=== PATIENT | female | born 1975 | race Caucasian/White ===

== ENCOUNTER 2017-03-14 18:11 | Inpatient (IN) | payer BC, OTHER ==
[~2017-03-14] VITALS: Ht 165.1 cm; Wt 61.0 kg
[~2017-03-14 18:11] MED LIST: ACET325T PO; BACTOIN EACH NARE; BROM2.5 PO; CALC600T25; CURIMIS; ESCI20TA PO; IBUP-232 PO; LAMO150 PO; LINE1TAB PO
[2017-03-14 18:13] VITALS: BP 101/51; PULSE 77; RESP 20; TEMP 97.8; O2SAT 99
--- NOTE | 2017-03-14 18:26 | PD ---
Physical Exam Time Seen by Provider: 18:25 Narrative 41 y/o female with R foot pain which started spontaneously yesterday. Vital signs reviewed. Seen at triage desk. Awaiting bed placement. Data Data Last Documented VS Vital Signs Date Time Temp Pulse Resp B/P Pulse Ox O2 Delivery O2 Flow Rate FiO2 03/14/17 18:13 97.8 77 20 101/51 99 Room Air MDM Medical Record Reviewed: Yes Supervised Visit with KALANI: Thai Sharpe Mar 14, 2017 18:26
[2017-03-14] MEDS ORDERED: diphenhydrAMINE HCL 50 MG/ML VIAL IV PUSH ONE (18:45)
[2017-03-14] MEDS ORDERED: VANCOMYCIN INJ 1,000 MG in SODIUM CHLOR 0.9% 250 ML INJ 250 ML IV ONE (18:45)
[2017-03-14] MEDS ORDERED: SODIUM CHLOR 0.9% 1000 ML INJ 1,000 ML IV ONE (18:45)
[2017-03-14] MEDS ORDERED: XANA1TAB2 PO (18:46)
--- NOTE | 2017-03-14 18:47 | PD ---
HPI Chief Complaint: Edema Time Seen by Provider: 18:44 Travel History International Travel<30 days: No Contact w/Intl Traveler<30days: No Traveled to known affect area: No History of Present Illness HPI 41 year old female presents to the emergency department for evaluation of right foot swelling, erythema that started yesterday. Patient reports history of hepatitis C, epilepsy. She states she is currently on Lamictal. Patient states she will commonly swell due to hepatitis C. Patient is hostile on exam. She denies any fevers. No chest pain shows breath. No abdominal pain. No nausea, vomiting, diarrhea. Patient denies IV drug use to me. Patient denies any injury. PFSH Past Medical History ADHD: Yes Blood Disorders: No Bipolar Disorder: Yes Anxiety: Yes Depression: Yes Cancer: No Cardiovascular Problems: No (heart murmur) Diminished Hearing: No Endocrine: No Genitourinary: No Hepatitis: Yes (HEP C ) Musculoskeletal: No Neurologic: Yes Psychiatric: Yes Reproductive: No Respiratory: No Integumentary: Yes (ABSCESS) Seizures: Yes (EPILEPTIC) Tetanus Vaccination: < 5 Years ?: Not LMP: LAST WEEK : 4 Para: 1 Miscarriage: 0 : 2 Past Surgical History Other Surgery: Yes (LAPAROSCOPIC REMOVAL OF SCAR TISSUE - OVARIES AND FALLOPIAN TUBES ) Social History Alcohol Use: No Tobacco Use: No Substance Use: No (Denies ) Allergies-Medications (Allergen,Severity, Reaction): Coded Allergies: Morphine (Verified Allergy, Severe, 03/14/17) Reglan (Verified Allergy, Severe, 03/14/17) Wellbutrin (Verified Allergy, Intermediate, Itching, 03/14/17) Penicillin (Verified Allergy, Unknown, hives fever, 03/14/17) Bactrim (Verified Adverse Reaction, Severe, almonte body aches, 03/14/17) Erythromycin (Verified Adverse Reaction, Severe, nv, 03/14/17) *MDRO Multi-Drug Resistant Organism (Verified Adverse Reaction, Unknown, ) MRSA (foot wound) - 11/2015; (chest) - 04/20/16; (breast) - 06/26/16; (foot) - 06/26/16 Reported Meds & Prescriptions Reported Meds & Active Scripts Active Escitalopram (Escitalopram Oxalate) 20 Mg Tab 20 Mg PO HS Do not start taking until finished with course of linezolid (Zyvox) Ibuprofen 600 Mg Tab 600 Mg PO Q6H Reported Xanax (Alprazolam) 1 Mg Tab 1 Mg PO TID PRN Lamictal (Lamotrigine) 150 Mg Tab 150 Mg PO BID Review of Systems Except as stated in HPI: all other systems reviewed are Neg Physical Exam Narrative GENERAL: Well-nourished, well-developed female patient, afebrile. SKIN: Focused skin assessment warm/dry. Patient has diffuse edema to the right foot and ankle with erythema extends jail up the anterior lower leg. Patient has multiple scab lesions noted to the lower extremities. HEAD: Normocephalic. Atraumatic. EYES: No scleral icterus. No injection or drainage. NECK: Supple, trachea midline. No JVD or lymphadenopathy. CARDIOVASCULAR: Regular rate and rhythm without murmurs, gallops, or rubs. Right pedal pulse 2+. RESPIRATORY: Breath sounds equal bilaterally. No accessory muscle use. Lungs sounds are clear to auscultation. GASTROINTESTINAL: Abdomen soft, non-tender, nondistended. MUSCULOSKELETAL: No cyanosis, or edema. Patient has limited range of motion of the right ankle, but can flex and extend the right ankle. BACK: Nontender without obvious deformity. No CVA tenderness. Data Data Last Documented VS Vital Signs Date Time Temp Pulse Resp B/P Pulse Ox O2 Delivery O2 Flow Rate FiO2 03/14/17 18:34 Room Air 03/14/17 18:13 97.8 77 20 101/51 99 Orders Iv Access Insert/Monitor (03/14/17 18:38) Complete Blood Count With Diff (03/14/17 18:38) Comprehensive Metabolic Panel (03/14/17 18:38) Prothrombin Time / Inr (Pt) (03/14/17 18:38) Act Partial Throm Time (Ptt) (03/14/17 18:38) Westergren Sedimentation Rate (03/14/17 18:38) C-Reactive Protein (Crp) (03/14/17 18:38) Blood Culture (03/14/17 18:38) Lactic Acid Sepsis Protocol (03/14/17 18:38) Foot, Complete (Prt0oph) (03/14/17 ) Ed Urine Pregnancytest Poc (03/14/17 18:38) Sodium Chlor 0.9% 1000 Ml Inj (Ns 1000 M (03/14/17 18:45) Vancomycin Inj (Vancomycin Inj) (03/14/17 18:45) Diphenhydramine Inj (Benadryl Inj) (03/14/17 18:45) Vascular Access Team Consult/P PRN (03/14/17 18:47) Vascular Poc Ultrasound (03/14/17 ) Drug Screen, Random Urine (03/14/17 18:51) Ketorolac Inj (Toradol Inj) (03/14/17 19:45) Labs Laboratory Tests Test 03/14/17 19:35 White Blood Count 9.6 TH/MM3 Red Blood Count 4.03 MIL/MM3 Hemoglobin 10.9 GM/DL Hematocrit 33.0 % Mean Corpuscular Volume 82.0 FL Mean Corpuscular Hemoglobin 27.0 PG Mean Corpuscular Hemoglobin 32.9 % Concent Red Cell Distribution Width 15.1 % Platelet Count 254 TH/MM3 Mean Platelet Volume 7.7 FL Neutrophils (%) (Auto) 81.8 % Lymphocytes (%) (Auto) 9.2 % Monocytes (%) (Auto) 6.5 % Eosinophils (%) (Auto) 2.1 % Basophils (%) (Auto) 0.4 % Neutrophils # (Auto) 7.9 TH/MM3 Lymphocytes # (Auto) 0.9 TH/MM3 Monocytes # (Auto) 0.6 TH/MM3 Eosinophils # (Auto) 0.2 TH/MM3 Basophils # (Auto) 0.0 TH/MM3 CBC Comment DIFF FINAL Differential Comment Erythrocyte Sedimentation Rate 46 mm/hr Sodium Level 141 MEQ/L Potassium Level 3.6 MEQ/L Chloride Level 108 MEQ/L Carbon Dioxide Level 24.7 MEQ/L Anion Gap 8 MEQ/L Blood Urea Nitrogen 16 MG/DL Creatinine 0.68 MG/DL Estimat Glomerular Filtration 96 ML/MIN Rate Random Glucose 115 MG/DL Lactic Acid Level 1.3 mmol/L Calcium Level 8.5 MG/DL Total Bilirubin 0.4 MG/DL Aspartate Amino Transf 20 U/L (AST/SGOT) Alanine Aminotransferase 24 U/L (ALT/SGPT) Alkaline Phosphatase 86 U/L C-Reactive Protein 17.00 MG/DL Total Protein 6.5 GM/DL Albumin 2.7 GM/DL MDM Medical Decision Making Medical Screen Exam Complete: Yes Emergency Medical Condition: Yes Medical Record Reviewed: Yes Interpretation(s) x-ray right foot - CONCLUSION: Prominent soft tissue swelling. Differential Diagnosis Cellulitis versus abscess versus sepsis versus osteomyelitis versus septic arthritis Narrative Course 41-year-old female presents to the emergency department for evaluation of right foot swelling and erythema that started yesterday. Patient denies IV drug use to me, but I do suspect the patient is using IV drugs. CBC, CMP, PTT, PTT/INR, sedimentation rate, CRP, blood cultures 2, lactic acid, ED urine test , a urine drug screen are ordered and pending. Patient is given normal saline 1 L IV bolus. Patient originally had allergy to vancomycin listed on chart. However, the patient states she can have vancomycin as long as she receives Benadryl with it. She denies any history of anaphylaxis to antibiotics. Patient is given vancomycin 1 g IV with Benadryl 50 mg IV. She refuses to allow the nurse to try for IV access. She demands that the vascular access team attempt IV. I did consult the vascular access team who states they will, and see her CBC shows normal WBC of 9.6, neutrophils of 81.8. CMP shows no acute abnormality. Sed rate is elevated at 46. CRP is elevated at 17. Lactic acid is 1.3. UPT is negative. X-ray of the right foot shows prominent soft tissue swelling. My attending physician, Dr. Grover, examined patient as well. He agrees the patient needs to be admitted for IV antibiotics. [facility] is paged for admission. Dr. Farias accepted admission. Diagnosis Primary Impression: Cellulitis of right foot Admitting Information Admitting Physician Requests: Admit Sudha Lopez Mar 14, 2017 18:47
--- NOTE | 2017-03-14 19:14 | RADRPT ---
EXAM DATE/TIME: 03/14/2017 18:54 [facility] COMPARISON: FOOT RIGHT COMPLETE ([id number]), December 16, 2015, 11:09. INDICATIONS : Patient's right foot is swollen and very painful since yesterday. MEDICAL HISTORY : Seizures. SURGICAL HISTORY : None. ENCOUNTER: Initial ACUITY: 1 day PAIN SCORE: 8/10 LOCATION: Right Foot. FINDINGS: No fractures are identified. Prominent soft tissue swelling along the dorsal aspect of the foot ident ified. No foreign bodies. Normal bone density. CONCLUSION: Prominent soft tissue swelling. Maury Mariscal MD on March 14, 2017 at 19:12 Board Certified Radiologist. This report was verified electronically.
[2017-03-14] MEDS ORDERED: KETOROLAC TROMETHAMINE 30 MG/ML (IVP) VIAL IV PUSH ONE (19:45)
[2017-03-14 19:58] LABS: AUTOMATED NEUTROPHIL # 7.9 TH/MM3 (1.8-7.7); BASOPHIL % 0.4 % (0.0-2.0); EOSINOPHIL # 0.2 TH/MM3 (0-0.4); EOSINOPHIL % 2.1 % (0.0-4.0); HEMO FLAGS DIFF FINAL; LYMPH % 9.2 % (9.0-44.0); LYMPHOCYTE # 0.9 TH/MM3 (1.0-4.8); MEAN CORPUSCULAR HGB CONC 32.9 % (32.0-36.0); MONO % 6.5 % (0.0-8.0); NEUT % 81.8 % (16.0-70.0); PLATELET COUNT 254 TH/MM3 (150-450); RED BLOOD COUNT 4.03 MIL/MM3 (4.00-5.30); RED CELL DISTRIBUTION WIDTH 15.1 % (11.6-17.2); WHITE BLOOD COUNT 9.6 TH/MM3 (4.0-11.0)
[2017-03-14 20:08] LABS: ALT (GPT) 24 U/L (10-53)
[2017-03-14 20:11] LABS: ALKALINE PHOSPHATASE 86 U/L (45-117); TOTAL BILIRUBIN ADULT 0.4 MG/DL (0.2-1.0)
[2017-03-14 20:28] LABS: ANION GAP 8 MEQ/L (5-15); AST (GOT) 20 U/L (15-37); BICARBONATE 24.7 MEQ/L (21.0-32.0); BLOOD UREA NITROGEN 16 MG/DL (7-18); CHLORIDE 108 MEQ/L (98-107); GLOMERULAR FILTRATION RATE 96 ML/MIN (>89); POTASSIUM 3.6 MEQ/L (3.5-5.1); SODIUM (NA) 141 MEQ/L (136-145)
[2017-03-14 20:53] LABS: APTT (PATIENT) 30.5 SEC (24.3-30.1); PROTHROMBIN TIME - PATIENT 10.6 SEC (9.8-11.6)
--- NOTE | 2017-03-14 20:54 | HHI.HP ---
[facility] No Primary Care Physician Admission Diagnosis right foot cellulitis Diagnoses: (1) Cellulitis of right foot Diagnosis: Principal (2) Bipolar disorder Diagnosis: Principal (3) Hepatitis C Diagnosis: Principal (4) Seizure disorder Diagnosis: Principal Travel History International Travel<30 Days: No Contact w/Intl Traveler <30 Da: No Traveled to Known Affected Are: No History of Present Illness This is a 41-year-old female with a PMH of Anxiety, Depression, Bipolar Disorder , Hepatitis C and h/o Narcotic Dependence who presented to the ER w/ complaints of right foot swelling x1 day. States she noticed RLE edema last night, but normally has lower extremity edema due to her Hepatitis C. Today, she woke up w / redness and pain along right foot/ankle. Denies any recent injury. Denies IVDU. No fever, chills reported. On arrival, BP 101/51, HR 77, O2 sat 99% on RA, Afebrile. CBC unremarkable. Chemistry essentially unremarkable. Lactic Acid 1.3. CRP 17. INR 1.0. Foot X-ray with prominent soft tissue swelling. S /p Blood Cultures and Vanc IV in ER. Review of Systems Except as stated in HPI: all other systems reviewed are Neg ROS: 14 point review of systems otherwise negative. Past Family Social History Past Medical History PMH: Anxiety, Depression, Bipolar Disorder, Hepatitis C and h/o Narcotic Dependence Past Surgical History PAST SURGICAL HISTORY: Oophorectomy Allergies: Coded Allergies: Morphine (Verified Allergy, Severe, 03/14/17) Reglan (Verified Allergy, Severe, 03/14/17) Wellbutrin (Verified Allergy, Intermediate, Itching, 03/14/17) Penicillin (Verified Allergy, Unknown, hives fever, 03/14/17) Bactrim (Verified Adverse Reaction, Severe, almonte body aches, 03/14/17) Erythromycin (Verified Adverse Reaction, Severe, nv, 03/14/17) *MDRO Multi-Drug Resistant Organism (Verified Adverse Reaction, Unknown, ) MRSA (foot wound) - 11/2015; (chest) - 04/20/16; (breast) - 06/26/16; (foot) - 06/26/16 Family History PAST FAMILY HISTORY: Reviewed. No h/o DM or CAD Social History PAST SOCIAL HISTORY: Denies alcohol, tobacco or drugs. Physical Exam Vital Signs Vital Signs Date Time Temp Pulse Resp B/P Pulse Ox O2 Delivery O2 Flow Rate FiO2 03/14/17 18:34 Room Air 03/14/17 18:13 97.8 77 20 101/51 99 Room Air Physical Exam PE: GENERAL: Middle-aged white female in no acute distress, asleep, however wakens and c/o excruciating pain. HEENT: PERRLA, EOMI. No scleral icterus or conjunctival pallor. No lid lag or facial droop. CARDIOVASCULAR: Regular rate and rhythm. No obvious murmurs to auscultation. No chest tenderness to palpation. RESPIRATORY: No obvious rhonchi or wheezing. Clear to auscultation. Breath sounds equal bilaterally. GASTROINTESTINAL: Abdomen soft, non-tender, nondistended. BS normal. MUSCULOSKELETAL: Extremities without clubbing, cyanosis, or edema. No obvious deformities. RLE redness/edema extending up leg, multiple scabs noted. NEUROLOGICAL: Awake, alert and oriented x4. No focal neurologic deficits. Moving both upper and lower extremities spontaneously. Laboratory Laboratory Tests Test 03/14/17 19:35 White Blood Count 9.6 Red Blood Count 4.03 Hemoglobin 10.9 Hematocrit 33.0 Mean Corpuscular Volume 82.0 Mean Corpuscular Hemoglobin 27.0 Mean Corpuscular Hemoglobin 32.9 Concent Red Cell Distribution Width 15.1 Platelet Count 254 Mean Platelet Volume 7.7 Neutrophils (%) (Auto) 81.8 Lymphocytes (%) (Auto) 9.2 Monocytes (%) (Auto) 6.5 Eosinophils (%) (Auto) 2.1 Basophils (%) (Auto) 0.4 Neutrophils # (Auto) 7.9 Lymphocytes # (Auto) 0.9 Monocytes # (Auto) 0.6 Eosinophils # (Auto) 0.2 Basophils # (Auto) 0.0 CBC Comment DIFF FINAL Differential Comment Erythrocyte Sedimentation Rate 46 Prothrombin Time 10.6 Prothromb Time International 1.0 Ratio Activated Partial 30.5 Thromboplast Time Sodium Level 141 Potassium Level 3.6 Chloride Level 108 Carbon Dioxide Level 24.7 Anion Gap 8 Blood Urea Nitrogen 16 Creatinine 0.68 Estimat Glomerular Filtration 96 Rate Random Glucose 115 Lactic Acid Level 1.3 Calcium Level 8.5 Total Bilirubin 0.4 Aspartate Amino Transf 20 (AST/SGOT) Alanine Aminotransferase 24 (ALT/SGPT) Alkaline Phosphatase 86 C-Reactive Protein 17.00 Total Protein 6.5 Albumin 2.7 Date/Time Procedure Status Source Growth 03/14/17 19:40 Aerobic Blood Culture Received Blood Peripheral Pending 03/14/17 19:40 Anaerobic Blood Culture Received Blood Peripheral Pending Result Diagram: 03/14/17193403/14/171934 Assessment and Plan Problem List: (1) Cellulitis of right foot ICD Code: L03.115 Status: Acute (2) Hepatitis C ICD Code: B19.20 Status: Acute (3) Bipolar disorder ICD Code: F31.9 Status: Acute (4) Seizure disorder ICD Code: G40.909 Status: Acute Assessment and Plan A/P: 1. Right Foot Cellulitis: acute onset of swelling x1 day, now w/ redness/pain , denies IVDU or trauma, Urine Drug Screen pending. S/p Blood Cultures, Vanc in ER. Will continue w/ IV Abx, follow up cultures. 2. Hepatitis C: Chronic. LFTs normal. Will monitor. 3. Seizure Disorder: Chronic. Stable. Resume home Lamictal 4. Bipolar Disorder: Resume home Lexapro and Xanax. 5. DVT Prophylaxis: SCD/Teds. 6. Social work for d/c planning as needed. 7. Case discussed w/ ER physician at length. Physician Certification 2 Midnight Certification Type: Admission for Inpatient Services Order for Inpatient Services The services are ordered in accordance with Medicare regulations or non- Medicare payer requirements, as applicable. In the case of services not specified as inpatient-only, they are appropriately provided as inpatient services in accordance with the 2-midnight benchmark. Estimated LOS (days): 2 days is the estimated time the patient will need to remain in the hospital, assuming treatment plan goals are met and no additional complications. Post-Hospital Plan: Not yet determined Gita Farias MD Mar 14, 2017 20:54
[2017-03-14] MEDS ORDERED: ONDANSETRON HCL 4 MG/2 ML VIAL IVP PRN (21:00)
[2017-03-14] MEDS ORDERED: BISACODYL 10 MG SUPP RECTAL PRN (21:00)
[2017-03-14] MEDS ORDERED: SODIUM CHLORIDE 0.9% FLUSH 10 ML FLUSH IV FLUSH PRN (21:00)
[2017-03-14] MEDS: SODIUM CHLORIDE 0.9% FLUSH 10 ML FLUSH IV FLUSH SCH (21:00)
[2017-03-14] MEDS ORDERED: ACETAMINOPHEN 325 MG TAB PO PRN (21:00)
[2017-03-14] MEDS ORDERED: LACTULOSE SYRUP 20 GM/30 ML CUP PO PRN (21:00)
[2017-03-14] MEDS ORDERED: Vancomycin Consult Pharmacy 1 EA OTHER SCH (21:00)
[2017-03-14] MEDS ORDERED: MAGNESIUM HYDROXIDE SUSP 30 ML CUP PO PRN (21:00)
[2017-03-14] MEDS: DOCUSATE SODIUM 50 MG/SENNA 8.6 MG TAB PO SCH (21:00)
[2017-03-14] MEDS ORDERED: diphenhydrAMINE HCL 50 MG CAP PO PRN (21:00)
[2017-03-14] MEDS ORDERED: SENNOSIDES 8.6 MG TAB PO PRN (21:00)
[2017-03-14] MEDS ORDERED: HYDROmorphone HCL PF 1 MG/ML VIAL IV PUSH ONE (23:45)
[2017-03-15] VITALS: BP 101/54; PULSE 88; RESP 17; TEMP 97.7; O2SAT 100
[2017-03-15] MEDS ORDERED: lamoTRIgine 25 MG TAB PO ONE (00:15)
[2017-03-15] MEDS ORDERED: lamoTRIgine 100 MG TAB PO ONE (00:30)
[2017-03-15] MEDS ORDERED: PILL SPLITTER OTHER PRN (00:30)
[2017-03-15 04:00] VITALS: BP 113/59; PULSE 87; RESP 17; TEMP 98.7; O2SAT 98
[2017-03-15 07:15] VITALS: BP 107/63; PULSE 89; RESP 18; TEMP 97; O2SAT 98
[2017-03-15] MEDS: lamoTRIgine 100 MG TAB PO SCH ×2 (08:24→21:13)
[2017-03-15] MEDS: DOCUSATE SODIUM 50 MG/SENNA 8.6 MG TAB PO SCH ×2 (08:25→21:00)
[2017-03-15] MEDS: ALPRAZolam 1 MG TAB PO PRN ×4 (08:29→21:13)
--- NOTE | 2017-03-15 09:04 | HHI.PR ---
Subjective Remarks Patient seen and examined this am. Vitals are stable and she is afebrile. Per nurse patient refusing UDS, refusing vancomycin. Wants IV dilaudid and IV benadryl. Complaining of pain, although nurse reports patient was sleeping comfortably. Endorses pain with weight bearing. States she noticed progressive swelling of her LE, denies trauma, but does report she picks. Reports hep C but would not say how she got it. Objective Vital Signs Date Time Temp Pulse Resp B/P Pulse Ox O2 Delivery O2 Flow Rate FiO2 03/15/17 07:15 97.0 89 18 107/63 98 03/15/17 04:00 98.7 87 17 113/59 98 03/15/17 00:00 97.7 88 17 101/54 100 03/14/17 18:34 Room Air 03/14/17 18:13 97.8 77 20 101/51 99 Room Air I/O 03/14/17 03/14/17 03/14/17 03/15/17 03/15/17 03/15/17 07:00 15:00 23:00 07:00 15:00 23:00 Intake Total 240 ml Balance 240 ml Intake Oral 240 ml IV Total 0 ml # Voids 2 Result Diagram: 03/14/17193403/14/171934 Imaging Last Impressions Foot X-Ray 03/14/17 0000 Signed Impressions: Service Date/Time: February 18:54 - CONCLUSION: Prominent soft tissue swelling. Maury Mariscal MD Other Results GENERAL: Middle-aged white female in no acute distress, asleep, however wakens and c/o excruciating pain. HEENT: PERRLA, EOMI. No scleral icterus or conjunctival pallor. No lid lag or facial droop. CARDIOVASCULAR: Regular rate and rhythm. No obvious murmurs to auscultation. No chest tenderness to palpation. RESPIRATORY: No obvious rhonchi or wheezing. Clear to auscultation. Breath sounds equal bilaterally. GASTROINTESTINAL: Abdomen soft, non-tender, nondistended. BS normal. MUSCULOSKELETAL: Extremities without clubbing, cyanosis, or edema. No obvious deformities. RLE redness/edema extending mid haque, multiple healed scabs noted of both LE. NEUROLOGICAL: Awake, alert and oriented x4. No focal neurologic deficits. Moving both upper and lower extremities spontaneously. Able to wiggle toes, sensation in tact. A/P Problem List: (1) Depression ICD Code: F32.9 (2) Bipolar disorder ICD Code: F31.9 (3) Seizure disorder ICD Code: G40.909 (4) Hepatitis C ICD Code: B19.20 (5) Cellulitis of right foot ICD Code: L03.115 Assessment and Plan 41 yo female with 1. Right Foot Cellulitis: soft tissue swelling noted on imaging, denies IVDU or trauma, she is refusing Urine Drug Screen. CRP 17. - blood cultures pending - hx of MDRO, currently on Vancomycin (03/14- ), will continue and adjust based on culture - UDS to be obtained - toradal added for pain and swelling, patient requesting dilaudid states its the only thing that works for her. Will give one time dose. 2. Hepatitis C: Chronic. LFTs normal. Will monitor. 3. Seizure Disorder: Chronic. Stable. Continue home Lamictal 4. Bipolar Disorder: Continue home Lexapro and Xanax. 5. DVT Prophylaxis: SCD/Teds. Discharge Planning D/C pending results of culture and continued improvement. Likely 1-2 days. Discussed with nurse. Demetria Peacock MD Mar 15, 2017 09:04
[2017-03-15] MEDS: diphenhydrAMINE HCL 50 MG/ML VIAL IV PUSH PRN ×2 (09:36→21:09)
[2017-03-15] MEDS: VANCOMYCIN 1,000 MG/NS 250 ML IV SCH ×4 (09:37→21:14)
[2017-03-15] MEDS: SODIUM CHLORIDE 0.9% FLUSH 10 ML FLUSH IV FLUSH SCH ×2 (09:38→21:13)
[2017-03-15 12:00] VITALS: BP 110/64; PULSE 90; RESP 20; TEMP 98.1; O2SAT 97
[2017-03-15] MEDS: KETOROLAC TROMETHAMINE 30 MG/ML (IVP) VIAL IV PUSH SCH ×4 (12:45→23:31)
[2017-03-15] MEDS ORDERED: HYDROmorphone HCL 2 MG TAB PO ONE (13:00)
[2017-03-15 13:25] LABS: BACTERIA, URINE FEW /hpf; BLOOD, URINE TRACE (NEG); COMMENT (UR) CULTURE INDICATED; CULTURE IF INDICATED CULTURE INDICATED; GLUCOSE,URINE NEG (NEG); KETONE, URINE NEG (NEG); MUCUS URINE FEW /lpf (OCC); NITRITE,URINE NEG (NEG); SQUAMOUS EPITHELIAL CELL URINE 11 /hpf (0-5); TRANSITIONAL EPI CELLS, URINE <1 /hpf; URINE COLOR LIGHT-YELLOW (YELLW/STRAW)
[2017-03-15 13:29] LABS: AMPHETAMINE, URINE NEG (NEG); BARBITURATES, URINE NEG (NEG); COCAINE, URINE POS (NEG)
[2017-03-15 14:00] VITALS: BP 110/64; PULSE 90; RESP 20; TEMP 98.1; O2SAT 97
[2017-03-15] MEDS ORDERED: HYDROmorphone HCL PF 1 MG/ML VIAL IV PUSH ONE (14:00)
[2017-03-15 16:00] VITALS: BP 103/57; PULSE 73; RESP 18; TEMP 96.9; O2SAT 98
[2017-03-15] MEDS: NITROFURANTOIN MONOHYD MACROCR 100 MG CAP PO SCH (17:50)
[2017-03-15] MEDS ORDERED: ESCITALOPRAM OXALATE 20 MG TAB PO SCH (21:00)
[2017-03-15] MEDS: HYDROmorphone HCL PF 1 MG/ML VIAL IV PUSH PRN (21:12)
[2017-03-16] VITALS: BP 122/73; PULSE 78; RESP 20; TEMP 96.8; O2SAT 96
[2017-03-16 04:00] VITALS: BP 122/57; PULSE 87; RESP 20; TEMP 96; O2SAT 97
[2017-03-16] MEDS: KETOROLAC TROMETHAMINE 30 MG/ML (IVP) VIAL IV PUSH SCH ×2 (06:16→11:45)
[2017-03-16] MEDS: ALPRAZolam 1 MG TAB PO PRN (06:16)
[2017-03-16] MEDS: HYDROmorphone HCL PF 1 MG/ML VIAL IV PUSH PRN ×2 (06:17→12:52)
[2017-03-16] MEDS ORDERED: PHARMACY ORDERED LAB ONE (07:45)
--- NOTE | 2017-03-16 07:46 | HHI.PR ---
Subjective Remarks Patient seen and examined this am. Vitals are stable and she is afebrile. When patient did not get her Dilaudid yesterday she created a scene in her room and security had to be called. Multiple attempts this am to get labs, poor IV. Able to bear weight, walking around room. Anxious to go home to see children. Wants to know if she can have another dose of dilaudid for her foot pain before discharge and norco to go home. Objective Vital Signs Date Time Temp Pulse Resp B/P Pulse Ox O2 Delivery O2 Flow Rate FiO2 03/16/17 04:00 96.0 87 20 122/57 97 03/16/17 00:00 96.8 78 20 122/73 96 03/15/17 18:26 18 03/15/17 16:00 96.9 73 18 103/57 98 03/15/17 14:34 18 03/15/17 14:00 98.1 90 20 110/64 97 03/15/17 12:00 98.1 90 20 110/64 97 03/15/17 09:20 18 I/O 03/15/17 03/15/17 03/15/17 03/16/17 03/16/17 03/16/17 07:00 15:00 23:00 07:00 15:00 23:00 Intake Total 240 ml 974 ml 360 ml 480 ml Balance 240 ml 974 ml 360 ml 480 ml Intake Oral 240 ml 720 ml 360 ml 480 ml IV Total 0 ml 254 ml 0 ml # Voids 2 1 2 # Bowel Movements 0 0 Result Diagram: 03/14/17 1935 03/14/17 1935 Imaging Last Impressions Foot X-Ray 03/14/17 0000 Signed Impressions: Service Date/Time: February 18:54 - CONCLUSION: Prominent soft tissue swelling. Maury Mariscal MD Objective Remarks GENERAL: Middle-aged white female in no acute distress, asleep, however wakens easily HEENT: PERRLA, EOMI. No scleral icterus or conjunctival pallor. No lid lag or facial droop. CARDIOVASCULAR: Regular rate and rhythm. No obvious murmurs to auscultation. No chest tenderness to palpation. RESPIRATORY: No obvious rhonchi or wheezing. Clear to auscultation. Breath sounds equal bilaterally. GASTROINTESTINAL: Abdomen soft, non-tender, nondistended. BS normal. MUSCULOSKELETAL: Extremities without clubbing, cyanosis, or edema. No obvious deformities. RLE redness/edema extending mid haque, multiple healed scabs noted of both LE, redness with significant improvement. Slightly warm, no areas of drainage. No induration or palpable abscess. NEUROLOGICAL: Awake, alert and oriented x4. No focal neurologic deficits. Moving both upper and lower extremities spontaneously. Able to wiggle toes, sensation in tact. A/P Problem List: (1) Depression ICD Code: F32.9 (2) Bipolar disorder ICD Code: F31.9 (3) Seizure disorder ICD Code: G40.909 (4) Hepatitis C ICD Code: B19.20 (5) Cellulitis of right foot ICD Code: L03.115 Assessment and Plan 41 yo female with 1. Right Foot Cellulitis: soft tissue swelling noted on imaging, denies IVDU or trauma, she is refusing Urine Drug Screen. CRP 17. IMPROVING. - blood cultures negative to date - hx of MDRO, currently on Vancomycin (03/14- ), will continue and adjust based on culture, will d.c on clindamycin due to allergies - toradal for pain and swelling, norco, dilaudid for breakthrough pain 2. Hepatitis C: Chronic. LFTs normal. Will monitor. 3. Seizure Disorder: Chronic. Stable. Continue home Lamictal 4. Bipolar Disorder: Continue home Lexapro and Xanax. 5. DVT Prophylaxis: SCD/Teds. Discharge Planning Cultures negative to date. May d/c home on PO abx, to follow with PCP. Patient in agreement with plan. After vancomycin. Patient seen and Discussed with nurse. Demetria Peacock MD Mar 16, 2017 07:46
[2017-03-16 08:00] VITALS: BP 103/50; PULSE 78; RESP 18; TEMP 97.5; O2SAT 95
[2017-03-16] MEDS: NITROFURANTOIN MONOHYD MACROCR 100 MG CAP PO SCH (08:58)
[2017-03-16] MEDS: DOCUSATE SODIUM 50 MG/SENNA 8.6 MG TAB PO SCH (08:59)
[2017-03-16] MEDS: lamoTRIgine 100 MG TAB PO SCH (08:59)
[2017-03-16] MEDS: SODIUM CHLORIDE 0.9% FLUSH 10 ML FLUSH IV FLUSH SCH (09:00)
[2017-03-16] MEDS: diphenhydrAMINE HCL 50 MG/ML VIAL IV PUSH PRN (10:27)
[2017-03-16] MEDS: VANCOMYCIN 1,000 MG/NS 250 ML IV SCH ×2 (10:30)
[2017-03-16] MEDS ORDERED: CLIN1CAP6 PO (11:01)
[2017-03-16] MEDS ORDERED: NORC5TAB PO (11:01)
--- NOTE | 2017-03-16 11:02 | HHI.DCPOC ---
Discharge Care Plan Diagnosis: (1) Cellulitis of right foot Goals to Promote Your Health * To prevent worsening of your condition and complications * To maintain your health at the optimal level Directions to Meet Your Goals Take your medications as prescribed Follow your dietary instruction Follow activity as directed Keep your appointments as scheduled Take your immunizations and boosters as scheduled If your symptoms worsen call your PCP, if no PCP go to Urgent Care Center or Emergency Room Smoking is Dangerous to Your Health. Avoid second hand smoke Call the 24-hour hour crisis hotline for domestic abuse at Demetria Peacock MD Mar 16, 2017 11:02
[2017-03-16] MEDS ORDERED: ACETAMINOPHEN/HYDROcodone 325 MG/5 MG TAB PO PRN (11:15)
[2017-03-16 12:00] VITALS: BP 102/51; PULSE 62; RESP 18; TEMP 97.8; O2SAT 98
[2017-03-17] MEDS ORDERED: PHARMACY ORDERED LAB ONE (07:45)
== END 2017-03-16 15:22 | disposition home or self-care (01) | DRG 603 ==
LOC: NEPD 18:11 → NEDA 20:48 → N07A 23:15
PROVIDERS: ADMIT Family Medicine; ATTEND Family Medicine
DX: L03.115 Cellulitis of right lower limb (principal); B18.2 Chronic viral hepatitis C; F31.9 Bipolar disorder, unspecified; G40.909 Epilepsy, unspecified, not intractable, without status epilepticus
CPT/HCPCS: 73630; 76937; 80053; 80307; 81001; 83605; 84703; 85025; 85610; 85652; 85730; 86140; 87040; 87086; 96365; 96375; J1170; J1200; J1885; J3370; J7030; J7050; Q0163